=== PATIENT | female | born 1965 | race Caucasian/White ===

== ENCOUNTER 2023-06-03 13:32 | Outpatient (OUT) | payer OTHER, SELFPAY ==
--- NOTE | 2023-06-03 13:51 | XR_ITS ---
The [address] [address] Patient Name: JASMIN CHOUDHARY MRN: [id number] date: 1965 Sex: F Assigned Patient Location: [facility] Current Patient Location: [facility] Accession/Order Number: [id number] Exam Date: 06/03/2023 13:51 Report Date: 06/03/2023 16:59 At the request of: GENARO JOSUE Procedure: XR foot LT min 3V EXAM: XR foot LT min 3V HISTORY: Left foot pain. COMPARISON: None. TECHNIQUE: 3 views left foot. FINDINGS: No fracture or dislocation. Mild diffuse edema. No radiopaque foreign body. Mild to moderate degenerative change of the great toe MTP joint and mild degenerative change of the midfoot. Plantar calcaneal enthesophytes. Stable chronic enthesopathic change at the dorsum of the navicular. XR/XR foot LT min 3V IMPRESSION: Mild diffuse edema without acute bony process left foot. Electronically authenticated by: BUTCH ACOSTA Date: 06/03/2023 16:59
--- NOTE | 2023-06-03 13:51 | XR_ITS ---
The [address] [address] Patient Name: JASMIN CHOUDHARY MRN: [id number] date: 1965 Sex: F Assigned Patient Location: [facility] Current Patient Location: [facility] Accession/Order Number: [id number] Exam Date: 06/03/2023 13:51 Report Date: 06/03/2023 16:53 At the request of: GENARO JOSUE Procedure: XR ankle LT min 3V EXAM: XR ankle LT min 3V HISTORY: LEFT ANKLE PAIN COMPARISON: 11/08/2021. TECHNIQUE: 3 views left ankle. FINDINGS: Mild soft tissue swelling and edema. No acute fracture or dislocation. Tiny chronic appearing ossifications at the inferior margin of the lateral malleolus similar to prior. Plantar calcaneal enthesophyte. XR/XR ankle LT min 3V IMPRESSION: Mild edema left ankle with no convincing acute process. Small chronic appearing ossifications laterally. Electronically authenticated by: BUTCH ACOSTA Date: 06/03/2023 16:53
== END 2023-06-03 13:33 | disposition home or self-care (01) ==
PROVIDERS: PCP Family Medicine; Visit Provider Physician Assistant
DX: M79.672 Pain in left foot (principal); M25.572 Pain in left ankle and joints of left foot
CPT/HCPCS: 73610; 73630

== ENCOUNTER 2023-08-11 09:18 | Outpatient (OUT) | payer OTHER, SELFPAY ==
--- NOTE | 2023-08-11 09:23 | MR_ITS ---
The [place] [id number] Patient Name: JASMIN CHOUDHARY MRN: [id number] date: 1965 Sex: F Assigned Patient Location: MRI Current Patient Location: MRI Accession/Order Number: [id number] Exam Date: 08/11/2023 09:43 Report Date: 08/11/2023 10:54 At the request of: LUL BELLA Procedure: MR ankle LT wo con MR ankle LT wo con, 08/11/2023 9:43 AM EDT INDICATION: Ankle sprain COMPARISON: This study was compared to the prior x-ray dated 06/03/2023 TECHNIQUE: Multiplanar and multisequential MR images of the left were obtained without contrast . FINDINGS: This study is limited due to incomplete axial and coronal images of the left ankle. Muscles and tendons: The visualized portion of flexor and extensor tendons and muscles are unremarkable. No abnormality of the visualized portion of peroneal tendons is noted. Achilles tendon is unremarkable. Bone: Postoperative changes within the distal fibula is noted. Osteoblastic lesion within the distal fibula likely due to bone island. There is no bone marrow edema. Simple cyst within the superior aspect of the left calcaneus measuring up to 7 mm anteroposteriorly. No other osseus lesion is noted. Sinus Tarsi: No abnormality of sinus Tarsi is noted. Plantar fascia: The plantar fascia is unremarkable. Ligaments: The deep and superficial portions of deltoid shows no significant abnormality. There is a scar within the anterior talofibular ligament. The remainder of lateral ligaments are unremarkable. The visualized portion of Lisfranc ligament is unremarkable. There is normal intra-articular joint effusion. No soft tissue abnormality is noted. MR/MR ankle LT wo con IMPRESSION: No acute finding is noted. Scar within the anterior talofibular ligament. No abnormality of the deltoid ligament. Electronically authenticated by: FLORINA KAN Date: 08/11/2023 10:54
== END 2023-08-11 09:19 | disposition home or self-care (01) ==
LOC: MRI 09:19
PROVIDERS: PCP Family Medicine; Visit Provider Podiatrist Foot & Ankle Surgery
DX: S93.402A Sprain of unspecified ligament of left ankle, initial encounter (principal)
CPT/HCPCS: 73721